=== PATIENT | female | born 1985 ===

== ENCOUNTER 2018-01-20 11:12 | Outpatient (CLI) | payer OTHER ==
--- NOTE | 2018-01-20 13:08 | RAD ---
PA AND LATERAL VIEWS OF CHEST: Date: 01/20/18 HISTORY: TB scanning. FINDINGS: The cardiomediastinum is normal. The lungs are expanded and clear. The bony thorax is normal. IMPRESSION: Normal exam. No radiographic evidence of active pulmonary tuberculosis. POS: [facility]
== END 2018-01-20 11:13 | disposition home or self-care (01) ==
LOC: RAD-FRANK 11:12
PROVIDERS: ATTEND Nurse Practitioner Family
DX: Z11.1 Encounter for screening for respiratory tuberculosis (principal)
CPT/HCPCS: 71046